=== PATIENT | female | born 1945 | race Caucasian/White ===

== ENCOUNTER → 2018-09-15 | Outpatient (CLI) | payer OTHER | END | disposition home or self-care (01) | LOC: MAMMO 00:55 | DX: Z12.31 Encounter for screening mammogram for malignant neoplasm of breast (principal) ==

== ENCOUNTER 2021-10-14 08:24 | Emergency (ER) | payer OTHER ==
[~2021-10-14] VITALS: Ht 162.5 cm; Wt 88.9 kg
[2021-10-14] MEDS ORDERED: HYDROCODONE-AC1 EAC1 PO (14:56)
[2021-10-14] MEDS ORDERED: ZOFRAN4 MG PO (14:56)
[2021-10-16] MEDS ORDERED: ZESTORETIC 20-1 EACH PO (11:25)
[2021-10-16] MEDS ORDERED: TOPROL XL50 M1 PO (11:26)
[2021-10-16] MEDS ORDERED: NEXIUM40 MG PO (11:27)
[2021-10-16] MEDS ORDERED: PEPCID40 MG PO (11:27)
[2021-10-16] MEDS ORDERED: JARDIANCE10 MG PO (11:28)
[2021-10-16] MEDS ORDERED: ASPIRIN81 M1 PO (11:28)
== END 2021-10-14 14:58 | disposition home or self-care (01) ==
LOC: ED 08:24
DX: S52.501A Unspecified fracture of the lower end of right radius, initial encounter for closed fracture (principal); S52.601A Unspecified fracture of lower end of right ulna, initial encounter for closed fracture; W00.2XXA Other fall from one level to another due to ice and snow, initial encounter; Y93.89 Activity, other specified; Y92.89 Other specified places as the place of occurrence of the external cause; Y99.8 Other external cause status

== ENCOUNTER → 2021-10-18 | Day surgery (SDC) | payer OTHER ==
[2021-10-16 12:05] LABS: BASO # 0.1 10*3/uL (0.0-0.1); BASO % 0.8 % (0.0-1.0); EOS # 0.2 10*3/uL (0.0-0.4); HEMATOCRIT 43.3 % (37.0-47.0); LYMPH # 2.4 10*3/uL (1.3-4.4); LYMPH % 20.3 % (27.0-41.0); MEAN CELL VOLUME 85.2 fl (81.0-99.0); MEAN CORPUSCULAR HGB CONC 31.6 g/dl (33.0-37.0); MEAN PLATELET VOLUME 9.1 fl (9.6-12.3); MONO # 0.9 10*3/uL (0.1-1.0); MONO % 7.5 % (3.0-9.0); NEUT # 8.1 10*3/uL (2.3-7.9); NEUT % 69.1 % (47.0-73.0); PLATELET COUNT AUTOMATED 366 10*3/uL (130-400); RED BLOOD COUNT 5.08 10*6/uL (4.10-5.10); RED CELL DISTRI WIDTH 13.3 % (0-14.5); WHITE BLOOD COUNT 11.7 10*3/uL (4.8-10.8)
[2021-10-16 12:15] LABS: POTASSIUM 3.1 mmol/L (3.5-5.1)
[~2021-10-18] VITALS: Ht 160 cm; Wt 86.2 kg
[2021-10-18] VITALS (7 sets, daily range): BP systolic 130–157; BP diastolic 52–80
[~2021-10-18] MED LIST: ASPIRIN81 M1 PO; HYDROCODONE-AC1 EAC1 PO; JARDIANCE10 MG PO; NEXIUM40 MG PO; PEPCID40 MG PO; TOPROL XL50 M1 PO; ZESTORETIC 20-1 EACH PO; ZOFRAN4 MG PO
== END | disposition home or self-care (01) ==
LOC: SDC 10-16 11:00
PROVIDERS: ATTEND Orthopaedic Surgery
DX: S52.571A Other intraarticular fracture of lower end of right radius, initial encounter for closed fracture (principal); M65.341 Trigger finger, right ring finger; M65.342 Trigger finger, left ring finger; I10 Essential (primary) hypertension; E11.9 Type 2 diabetes mellitus without complications; K21.9 Gastro-esophageal reflux disease without esophagitis; Z87.891 Personal history of nicotine dependence; Z90.710 Acquired absence of both cervix and uterus; W01.0XXA Fall on same level from slipping, tripping and stumbling without subsequent striking against object, initial encounter; Y93.89 Activity, other specified; Y92.89 Other specified places as the place of occurrence of the external cause; Y99.8 Other external cause status; Z20.822 Contact with and (suspected) exposure to COVID-19

== ENCOUNTER → 2021-11-01 | Outpatient (CLI) | payer OTHER | END | disposition home or self-care (01) | LOC: ORTHO 02:35 | PROVIDERS: ATTEND Orthopaedic Surgery | DX: S52.571D Other intraarticular fracture of lower end of right radius, subsequent encounter for closed fracture with routine healing (principal); X58.XXXD Exposure to other specified factors, subsequent encounter ==

== ENCOUNTER → 2021-11-29 | Outpatient (CLI) | payer OTHER | END | disposition home or self-care (01) | LOC: ORTHO 01:53 | PROVIDERS: ATTEND Orthopaedic Surgery | DX: S52.571D Other intraarticular fracture of lower end of right radius, subsequent encounter for closed fracture with routine healing (principal); X58.XXXD Exposure to other specified factors, subsequent encounter ==

== ENCOUNTER → 2021-12-20 | Outpatient (CLI) | payer OTHER | END | disposition home or self-care (01) | LOC: ORTHO 00:17 | PROVIDERS: ATTEND Orthopaedic Surgery | DX: S52.571D Other intraarticular fracture of lower end of right radius, subsequent encounter for closed fracture with routine healing (principal); X58.XXXD Exposure to other specified factors, subsequent encounter ==